=== PATIENT | male | born 1960 | race Two or more races ===

== ENCOUNTER → 2024-07-09 | Outpatient (CLI) | payer OTHER, SELFPAY ==
[2024-07-09 12:26] LABS: Basophils % (Auto) 1 % (0-2.5); Eosinophils # (Auto) 0.1 Thou/mm3 (0.0-0.5); Eosinophils % (Auto) 2 % (0-10); Hematocrit 41.3 % (41.0-53.0); Immature Granulocytes % (Auto) 1 % (0-0); Immature Granulocytes Auto 0.03 Thou/mm3 (0.00-0.00); Lymphocytes % (Auto) 37 % (10-50); Mean Corpuscular HGB Conc 33.9 g/dl (31.0-37.0); Mean Corpuscular Hemoglobin 32.2 pg (25.0-35.0); Mean Corpuscular Volume 95 fL (80-100); Monocytes # (Auto) 0.5 Thou/mm3 (0.0-0.8); Monocytes % (Auto) 9 % (0-12); Neutrophils # (Auto) 2.7 Thou/mm3 (1.8-7.7); Neutrophils % (Auto) 51 % (37-80); Nucleated Red Blood Cell % 0 /100 WBC (0); Platelet Count 210 Thou/mm3 (140-440); RDW Standard Deviation 46.2 fL (35.1-43.9); Red Blood Count 4.35 Miln/mm3 (4.50-5.90); White Blood Count 5.4 Thou/mm3 (3.8-10.6)
== END | disposition home or self-care (01) ==
LOC: COPL 11:08
PROVIDERS: PCP Internal Medicine; Referring Provider Specialist; Visit Provider Specialist
DX: D69.6 Thrombocytopenia, unspecified (principal); Z51.11 Encounter for antineoplastic chemotherapy
CPT/HCPCS: 36415; 85025

== ENCOUNTER 2024-09-05 12:26 | Emergency (ER) | payer OTHER, SELFPAY ==
--- NOTE | 2024-09-05 12:55 | XR_ITS ---
Examination: CT abdomen and pelvis without contrast. Coronal 3-D reconstructions. Sagittal 2-D reconstructions. Date and time of exam:September 05, 2024 at 1549 hrs. Indications: Status post spinal surgery August 05, 2024 with abdominal pain and swelling 1 week CTDI: vol (mGy): 9.70 DLP: (mGycm): 580 Technique: Axial images of the abdomen have been obtained, 3 mm slice thickness Intravenous contrast material has not been administered. Low dose protocols were performed. One or more of the following dose reduction techniques were used; automated exposure control, adjustment of the mA and/or KV according to patient size, use of iterative reconstruction technique. Findings: No focal liver or splenic lesion No gallstones No pancreatic or adrenal mass Interval very large fluid collection in the left abdomen which is present below the left kidney, AP dimension 20 cm mediolateral dimension 15 cm, cephalocaudad dimension at least 19 cm Moderate left hydronephrosis No bowel obstruction Normal appendix No diverticulitis Contracted urinary bladder with wall thickening Large prostate calcifications, transverse prostate dimension 5.4 cm Transpedicular lumbar stabilization T12-S1 surrounding a severity compressed L4 vertebral body, please see the CT scan lumbar spine February 05, 2023 The large fluid collection is contiguous with the anterior spinal margin Impression: Postoperative lumbar spine changes as above Interval very large fluid collection in the left abdomen, differential would include urinoma secondary to damage to the left ureter as well as hematoma Recommend repeating this study CTA post intravenous contrast with delayed images to outline the ureters and urinary bladder
--- NOTE | 2024-09-05 12:56 | PD.EDRME ---
Rapid Medical Screening Exam RME Arrival date/time: 09/05/24 12:26 64-year-old male with no known medical history presents to the emergency room with a chief complaint of abdominal bloating. Patient states he recently had spinal surgery and they had to do an incision through his abdomen to reach his back. Patient states that where his incision is there is a lot of bloating and abdominal tenderness to the area. The surgery was done in [place] and the patient states he has been unable to see the surgeon. I have greeted and performed a focused initial assessment of this patient. A comprehensive ED assessment and evaluation of the patient, analysis of all test results, and completion of the medical decision making process will be conducted by additional ED providers. Chief Complaint: General Adult/Misc Complain Vital signs reviewed by provider: Yes
[2024-09-05 12:57] VITALS: BP 131/74; PULSE 82; RESP 19; TEMP 36.8; O2SAT 99; BMI 29.8
[2024-09-05 13:45] LABS: Basophils % (Auto) 1 % (0-2.5); Eosinophils # (Auto) 0.2 Thou/mm3 (0.0-0.5); Eosinophils % (Auto) 4 % (0-10); Hemoglobin 11.9 g/dL (13.5-16.0); Immature Granulocytes % (Auto) 1 % (0-0); Immature Granulocytes Auto 0.03 Thou/mm3 (0.00-0.00); Lymphocytes # (Auto) 1.6 Thou/mm3 (1.0-4.8); Lymphocytes % (Auto) 26 % (10-50); Mean Corpuscular HGB Conc 33.1 g/dl (31.0-37.0); Mean Corpuscular Hemoglobin 30.7 pg (25.0-35.0); Mean Corpuscular Volume 93 fL (80-100); Monocytes # (Auto) 0.7 Thou/mm3 (0.0-0.8); Monocytes % (Auto) 11 % (0-12); Neutrophils # (Auto) 3.7 Thou/mm3 (1.8-7.7); Neutrophils % (Auto) 58 % (37-80); Nucleated Red Blood Cell % 0 /100 WBC (0); Platelet Count 283 Thou/mm3 (140-440); RDW Standard Deviation 50.8 fL (35.1-43.9); Red Blood Count 3.87 Miln/mm3 (4.50-5.90); White Blood Count 6.3 Thou/mm3 (3.8-10.6)
[2024-09-05 14:11] LABS: Alanine Aminotransferase 27 U/L (10-49); Albumin, Serum 4.5 gm/dL (3.4-4.8); Albumin/Globulin Ratio 1.6 (1.2-2.2); Alkaline Phosphatase 134 U/L (46-116); Anion Gap 9 (7-16); Aspartate Amino Transferase 24 U/L (0-34); BUN/Creatinine Ratio 21 Ratio (12-20); Bilirubin,Total 0.8 mg/dL (0.3-1.2); Blood Urea Nitrogen 17 mg/dL (9-23); Calcium 9.7 mg/dL (8.3-10.6); Calcium (Corrected) 9.7 mg/dL (8.5-10.1); Carbon Dioxide 24.1 mMol/L (20.0-31.0); Chloride 104 mMol/L (98-107); Creatinine (Component) 0.8 mg/dL (0.6-1.3); Estimated Creatinine Clearance 83.7 mL/min (>60); Globulin 2.9 gm/dL (2.3-3.5); Glucose 87 mg/dL (74-106); Lipase 35 U/L (12-53); Osmolality,Calculated 274 (275-295); Sodium 137 mMol/L (136-145); Total Protein 7.4 gm/dL (5.7-8.2); eGFR > 60 See Note
[2024-09-05 14:31] LABS: Collection Type, Urine Clean Catch
[2024-09-05 14:55] LABS: Bilirubin,Urine Negative (Negative); Blood,Urine Negative (Negative); Clarity,Urine Clear (Clear/Hazy); Color,Urine Yellow (Lt Yel-Yel); Glucose, Urine Negative (Negative); Hyaline Casts,Urine < 1 /hpf (0-1); Ketones,Urine Negative (Negative); Leukocyte Esterase,Urine Negative (Negative); Nitrite,Urine Negative (Negative); PH,Urine 5.5 (5.0-7.0); Protein,Urine Trace (Neg - Trace); RBC,Urine 4 /hpf (0-3); Specific Gravity,Urine 1.023 (1.001-1.035); Squamous Epithelial Cell,Urine < 1 /hpf (0-5); Urobilinogen,Urine Negative mg/dL (0.0-1.0); WBC,Urine 3 /hpf (0-5)
[2024-09-05 16:59] VITALS: BP 103/62; PULSE 79; RESP 19; TEMP 37.1; O2SAT 98
--- NOTE | 2024-09-05 17:53 | XR_ITS ---
Examination: CTA abdomen, with intravenous contrast. CTA pelvis, with intravenous contrast. 2-D sagittal and coronal reconstructions. 3-D reconstructions. Date and time of exam: September 05, 20242024 hrs. Indications: Spinal surgery August 05, 2024 followed by abdominal pain and swelling this week CTDI vol (mgy) 9.39 DLP (MGycm) 542 Technique: Multiple CTA images, 2.0 mm slice thickness, obtained abdomen, pelvis, with the high-resolution 64 slice scanner. 100 cc Isovue-370 is administered intravenously. Sagittal and coronal 2-D reconstructions are obtained. 3-D reconstructions, angiographic images are obtained. 3-D postprocessing, including vascular maximum intensity projections. Low dose protocols were performed. One or more of the following dose reduction techniques were used; automated exposure control, adjustment of the mA and/or KV according to patient size, use of iterative reconstruction technique. Findings: No focal liver or splenic lesions No gallstones No pancreatic mass Moderate left hydronephrosis The opacified abdominal aorta appears intact The large cystic mass in the left abdomen is again depicted, 20 x 15 x 19 cm This mass does not opacify with contrast The mass is immediately adjacent and anterior to the lumbar spinal fusion Urinary bladder intact Prostate calcifications No inguinal hernias Impression: Moderate left hydronephrosis, likely secondary to large cystic mass in the left abdomen 20 x 15 x 19 cm Differential for this large cystic mass would include seroma, hematoma, less likely secondary to ureteral damage but clinical correlation advised
--- NOTE | 2024-09-05 17:54 | PD.EDRME ---
Rapid Medical Screening Exam RME Arrival date/time: 09/05/24 12:26 09/05/24 12:26 64-year-old male with no known medical history presents to the emergency room with a chief complaint of abdominal bloating. Patient states he recently had spinal surgery and they had to do an incision through his abdomen to reach his back. Patient states that where his incision is there is a lot of bloating and abdominal tenderness to the area. The surgery was done in [place] and the patient states he has been unable to see the surgeon. I have greeted and performed a focused initial assessment of this patient. A comprehensive ED assessment and evaluation of the patient, analysis of all test results, and completion of the medical decision making process will be conducted by additional ED providers. Chief Complaint: General Adult/Misc Complain Time Seen by Provider: 09/06/24 00:01 Vital signs: Vital Signs Temperature 98.3 F 09/05/24 12:57 Pulse Rate 82 09/05/24 12:57 Respiratory Rate 19 09/05/24 12:57 Blood Pressure 131/74 H 09/05/24 12:57 Pulse Oximetry (%) 99 09/05/24 12:57 Oxygen Delivery Method Room Air 09/05/24 12:57 RME Narrative: 09/05/24 12:26 64-year-old male with no known medical history presents to the emergency room with a chief complaint of abdominal bloating. Patient states he recently had spinal surgery and they had to do an incision through his abdomen to reach his back. Patient states that where his incision is there is a lot of bloating and abdominal tenderness to the area. The surgery was done in [place] and the patient states he has been unable to see the surgeon. I have greeted and performed a focused initial assessment of this patient. A comprehensive ED assessment and evaluation of the patient, analysis of all test results, and completion of the medical decision making process will be conducted by additional ED providers.
[2024-09-05 22:31] VITALS: BP 110/60; PULSE 75; RESP 19; TEMP 36.9; O2SAT 98
--- NOTE | 2024-09-06 00:05 | PD.EDADULT ---
ED General RME/HPI General Chief complaint: General Adult/Misc Complain Stated complaint: WOUND CHECK TO ABDOMEN S/P SURGERY ON 08/05 Time Seen by Provider: 09/06/24 00:01 Arrival date/time: 09/05/24 12:26 Limitations: no limitations RME / HPI RME / HPI narrative: 09/05/24 12:26 64-year-old male with no known medical history presents to the emergency room with a chief complaint of abdominal bloating. Patient states he recently had spinal surgery and they had to do an incision through his abdomen to reach his back. Patient states that where his incision is there is a lot of bloating and abdominal tenderness to the area. The surgery was done in [place] and the patient states he has been unable to see the surgeon. I have greeted and performed a focused initial assessment of this patient. A comprehensive ED assessment and evaluation of the patient, analysis of all test results, and completion of the medical decision making process will be conducted by additional ED providers. ------- Dr. Daley's Main ED Evaluation: 64yo male presents to the ED for a chief complaint of abdominal bloating. Patient's daughter states the patient had spinal surgery performed by Dr. Ortiz at [facility] [[email or web address]] on 08/05/24 and was discharged on 08/11/24. She states the patient had been doing fine after being discharged, but recently started feeling like the left side of his incision was getting bigger, so he came in for evaluation. He denies any fever, chills, UTI symptoms or any other associated symptoms. No known allergies. 2022 - Fall- s/p burst type compression fracture L4 vertebral body, with recent surgical lumbar stabilization T12-S1 08/05/24 Related Data Allergies Allergy/AdvReac Type Severity Reaction Status Date / Time No Known Allergies Allergy Verified 09/05/24 12:30 Review of Systems Review of Systems Systems Reviewed: All systems reviewed, normal except as documented Past Medical History Past Medical History CARDIAC: Negative Cardiac Disorders or Congestive Heart Failure RESPIRATORY: Negative Chronic Obstructive Pulmonary Disease (COPD) or Asthma GENITOURINARY: Negative Renal Disease ENDOCRINE: Negative Diabetes Mellitus Type 1 or Diabetes Mellitus Type 2 HEMATOLOGIC: Negative Sickle Cell Disease Social History SMOKING STATUS: Never smoker ED Exam General Limitations: Present no limitations General appearance: Present alert and in no apparent distress Head Head exam: Present atraumatic Eye Eye exam: Present normal appearance and EOMI ENT ENT exam: Present normal exam, normal oropharynx and mucous membranes moist Neck Neck exam: Present normal inspection, full ROM and trachea midline Chest Chest inspection: Present normal inspection and symmetric chest wall rise Respiratory Respiratory exam: Present normal lung sounds bilaterally Cardiovascular Cardiovascular exam: Present regular rate, normal rhythm and normal heart sounds Abdominal Exam Abdominal exam: Present soft, normal bowel sounds, incision (from left upper abdomen that extends 10 cm below his left nipple to the left groin, steri strips in place, no discharge, nontender) and other (fullness on bilateral sides of the anterior abdominal wall) Extremities Exam Extremities exam: Present normal inspection and full ROM Back Exam Back exam: Present other (midline incision that extends from below the scapula to the cleft of his buttock are that is nontender, well-healed with steri strips in place, no discharge; normal sensation L5-S1, normal motor; distal reflexes equal bilaterally; N/V intact) Neurological Exam Neurological exam: Present alert, oriented X3, CN II-XII intact and normal gait; Absent motor sensory deficit Psychiatric Psychiatric exam: Present normal affect and normal mood Skin Skin exam: Present warm, dry, intact and normal color Course Quality Measures none Orders Category Date Time Status CT Screening NOW Care 09/05/24 17:[address] Screening NOW Care 09/05/24 17:[address] abdomen pelvis wo con Stat Exams 09/05/24 12:[address] angio abdomen pelvis Stat Exams 09/05/24 17:53 Completed CBC Stat Lab 09/05/24 13:16 Completed CMP [Comprehensive Metabolic Panel] Stat Lab 09/05/24 13:16 Completed Lipase Stat Lab 09/05/24 13:16 Completed UA [Urinalysis] Stat Lab 09/05/24 14:00 Completed Vital Signs Vital signs: Vital Signs Temperature 98.3 F 09/05/24 12:57 Pulse Rate 82 09/05/24 12:57 Respiratory Rate 19 09/05/24 12:57 Blood Pressure 131/74 H 09/05/24 12:57 Pulse Oximetry (%) 99 09/05/24 12:57 Oxygen Delivery Method Room Air 09/05/24 12:57 [facility] Patient data External records reviewed:: [facility] previous records (Per chart review, patient has no relevant previous ED visits.) Clinical information provided by:: patient Social determinants that could affect healthcare access:: none Patient has the following chronic illnesses:: none How is presenting disease/condition affected by chronic disease/condition?: no chronic disease Evaluation data The following diagnostics were reviewed and interpreted by me:: lab results and radiology exam(s) Lab and/or radiology exams considered but not ordered:: none Interpretation Summary: CBC is normal, CMP is normal, Lipase is normal, UA is unremarkable, according to my interpretation. ----- [facility] Report Signed Patient: CHITO CLARK Record#: [id number] Birthdate: 1960 Age/Sex: 64 / M Location: [facility] Attending Dr: Ordering Physician: Nathan Lundy Date of Service: 09/05/24 Procedure(s): CT abdomen pelvis wo con Accession Number(s): [id number] cc: Kenney Kellogg; Nathan Lundy; Kong Nicolas MD~ Examination: CT abdomen and pelvis without contrast. Coronal 3-D reconstructions. Sagittal 2-D reconstructions. Date and time of exam:September 05, 2024 at 1549 hrs. Indications: Status post spinal surgery August 05, 2024 with abdominal pain and swelling 1 week CTDI: vol (mGy): 9.70 DLP: (mGycm): 580 Technique: Axial images of the abdomen have been obtained, 3 mm slice thickness Intravenous contrast material has not been administered. Low dose protocols were performed. One or more of the following dose reduction techniques were used; automated exposure control, adjustment of the mA and/or KV according to patient size, use of iterative reconstruction technique. Findings: No focal liver or splenic lesion No gallstones No pancreatic or adrenal mass Interval very large fluid collection in the left abdomen which is present below the left kidney, AP dimension 20 cm mediolateral dimension 15 cm, cephalocaudad dimension at least 19 cm Moderate left hydronephrosis No bowel obstruction Normal appendix No diverticulitis Contracted urinary bladder with wall thickening Large prostate calcifications, transverse prostate dimension 5.4 cm Transpedicular lumbar stabilization T12-S1 surrounding a severity compressed L4 vertebral body, please see the CT scan lumbar spine February 05, 2023 The large fluid collection is contiguous with the anterior spinal margin Impression: Postoperative lumbar spine changes as above Interval very large fluid collection in the left abdomen, differential would include urinoma secondary to damage to the left ureter as well as hematoma Recommend repeating this study CTA post intravenous contrast with delayed images to outline the ureters and urinary bladder Dictated By: Kong Nicolas MD Signed By: <Electronically signed by Kong Nicolas MD in [place]> 09/05/24 1657 [facility] Report Signed Patient: CHITO CLARK Record#: [id number] Birthdate: 1960 Age/Sex: 64 / M Location: [facility] Attending Dr: Ordering Physician: Nathan Lundy Date of Service: 09/05/24 Procedure(s): CT angio abdomen pelvis Accession Number(s): [id number] cc: Kenney Kellogg; Nathan Lundy; Kong Nicolas MD~ Examination: CTA abdomen, with intravenous contrast. CTA pelvis, with intravenous contrast. 2-D sagittal and coronal reconstructions. 3-D reconstructions. Date and time of exam: September 05, 20242024 hrs. Indications: Spinal surgery August 05, 2024 followed by abdominal pain and swelling this week CTDI vol (mgy) 9.39 DLP (MGycm) 542 Technique: Multiple CTA images, 2.0 mm slice thickness, obtained abdomen, pelvis, with the high-resolution 64 slice scanner. 100 cc Isovue-370 is administered intravenously. Sagittal and coronal 2-D reconstructions are obtained. 3-D reconstructions, angiographic images are obtained. 3-D postprocessing, including vascular maximum intensity projections. Low dose protocols were performed. One or more of the following dose reduction techniques were used; automated exposure control, adjustment of the mA and/or KV according to patient size, use of iterative reconstruction technique. Findings: No focal liver or splenic lesions No gallstones No pancreatic mass Moderate left hydronephrosis The opacified abdominal aorta appears intact The large cystic mass in the left abdomen is again depicted, 20 x 15 x 19 cm This mass does not opacify with contrast The mass is immediately adjacent and anterior to the lumbar spinal fusion Urinary bladder intact Prostate calcifications No inguinal hernias Impression: Moderate left hydronephrosis, likely secondary to large cystic mass in the left abdomen 20 x 15 x 19 cm Differential for this large cystic mass would include seroma, hematoma, less likely secondary to ureteral damage but clinical correlation advised Dictated By: Kong Nicolas MD Signed By: <Electronically signed by Kong Nicolas MD in [place]> 09/05/24 5433 Medications Medications considered but not ordered:: none Medication administrations:: see above, if any Consultations Consultation(s) initiated? (list below): No Diagnosis Differential Diagnosis ED Complaint MDM: postop infection, hematoma, seroma, kidney mass causing hydronephrosis Most likely diagnosis given after review of the tests above:: Other DDx: kidney stone, sepsis, UTI Final DDx: see below Admission Indicated Admission indicated?: not indicated Explain why admission is indicated or not indicated:: Patient requires a higher level of care. Admission Request Was there a request for admission?: No Disposition Plan Disposition Plan: other (specify) (Signed out to Dr. Willams at 0600 pending transfer/callback from [facility] [[email or web address]] (have not yet spoken with them yet).) Medical Decision Making MDM Narrative MDM Narrative: Patient was placed into a room at 2336. Differential Diagnosis Differential Diagnosis: postop infection, hematoma, seroma, kidney mass causing hydronephrosis Lab Data 09/05/24 13:16 09/05/24 13:16 Labs: Lab Results 09/05/24 09/05/24 Range/Units 13:16 14:00 WBC 6.3 (3.8-10.6) Thou/mm3 RBC 3.87 L (4.50-5.90) Miln/mm3 Hgb 11.9 L (13.5-16.0) g/dL Hct 36.0 L (41.0-53.0) % MCV 93 (80-100) fL MCH 30.7 (25.0-35.0) pg MCHC 33.1 (31.0-37.0) g/dl RDW Std Deviation 50.8 H (35.1-43.9) fL Plt Count 283 (140-440) Thou/mm3 Neut % (Auto) 58 (37-80) % Lymph % (Auto) 26 (10-50) % [place] % (Auto) 11 (0-12) % Eos % (Auto) 4 (0-10) % Baso % (Auto) 1 (0-2.5) % Neut # (Auto) 3.7 (1.8-7.7) Thou/mm3 Lymph # (Auto) 1.6 (1.0-4.8) Thou/mm3 [place] # (Auto) 0.7 (0.0-0.8) Thou/mm3 Eos # (Auto) 0.2 (0.0-0.5) Thou/mm3 Baso # (Auto) 0.0 (0.0-0.2) Thou/mm3 Immature Gran # (Auto) 0.03 H (0.00-0.00) Thou/mm3 Absolute Nucleated RBC 0.00 (0.00-0.00) Thou/mm3 Immature Gran % 1 H (0-0) % Nucleated RBC % 0 (0) /100 WBC Sodium 137 (136-145) mMol/L Potassium 4.0 (3.4-5.1) mMol/L Chloride 104 (98-107) mMol/L Carbon Dioxide 24.1 (20.0-31.0) mMol/L Anion Gap 9 (7-16) BUN 17 (9-23) mg/dL Creatinine 0.8 (0.6-1.3) mg/dL Estim Creat Clear Calc 83.7 (>60) mL/min eGFR > 60 (60 - ) See Note BUN/Creatinine Ratio 21 H (12-20) Ratio Glucose 87 (74-106) mg/dL Calculated Osmolality 274 L (275-295) Calcium 9.7 (8.3-10.6) mg/dL Corrected Calcium 9.7 (8.5-10.1) mg/dL Total Bilirubin 0.8 (0.3-1.2) mg/dL AST 24 (0-34) U/L ALT 27 (10-49) U/L Alkaline Phosphatase 134 H (46-116) U/L Total Protein 7.4 (5.7-8.2) gm/dL Albumin 4.5 (3.4-4.8) gm/dL Globulin 2.9 (2.3-3.5) gm/dL Albumin/Globulin Ratio 1.6 (1.2-2.2) Lipase 35 (12-53) U/L Ur Collection Type Clean Catch Urine Color Yellow (Lt Yel-Yel) Urine Clarity Clear (Clear/Hazy) Urine pH 5.5 (5.0-7.0) Ur Specific [place] 1.023 (1.001-1.035) Urine Protein Trace (Neg - Trace) Urine Glucose (UA) Negative (Negative) Urine Ketones Negative (Negative) Urine Blood Negative (Negative) Urine Nitrite Negative (Negative) Urine Bilirubin Negative (Negative) Urine Urobilinogen (Auto) Negative (0.0-1.0) mg/dL Ur Leukocyte Esterase Negative (Negative) Urine RBC 4 H (0-3) /hpf Urine WBC 3 (0-5) /hpf Ur Squamous Epith Cells < 1 (0-5) /hpf Urine Bacteria None (None) Hyaline Casts < 1 (0-1) /hpf Discharge Plan Plan Disposition Comment: Stable at transfer Prescriptions/Referrals Referrals: Kenney Kellogg [Primary Care Provider] - In 1 week Problem List Clinical Impression: Post op infection, Hydronephrosis, Abdominal mass Patient/Caregiver Discharge Instructions Print Language: Mongolian
--- NOTE | 2024-09-06 03:49 | PC.NURSE ---
TRANSFER [facility], PT WAS SEEN THERE ON 08/[address] BERG, SPOKE WITH ALICJA AT TRANSFER CENTER AND SENDING OVER INFORMATION
[2024-09-06 04:06] VITALS: BP 118/70; PULSE 75; RESP 14; TEMP 36.9; O2SAT 98
[2024-09-06 06:00] VITALS: BP 115/74; PULSE 74; RESP 16; TEMP 36.9; O2SAT 99
--- NOTE | 2024-09-06 06:06 | PC.NURSE ---
[facility] CONTACTED ER, GETTING CLINICALS FROM DR LIN
--- NOTE | 2024-09-06 06:12 | PD.EDADDENDU ---
Emergency Room Addendum Addendum Narrative: 0600: Care assumed from Dr. Daley, the previous shift emergency physician. Past medical, surgical, social and family history reviewed. Vitals and home medications reviewed. I will assume the care of the patient at this time, pending transfer. Please refer to the emergency department record for history and examination from initial visit.? Physical exam by me shows patient under no acute distress at this time.
== END 2024-09-06 07:11 | disposition home or self-care (01) ==
PROVIDERS: Nurse Practitioner Family; Emergency Provider Emergency Medicine; PCP Internal Medicine
DX: N13.30 Unspecified hydronephrosis (principal); T81.40XA Infection following a procedure, unspecified, initial encounter
CPT/HCPCS: 36415; 74174; 74176; 80053; 81001; 83690; 85025; 99285; A4649; Q9967

== ENCOUNTER → 2024-09-16 | Outpatient (CLI) | payer OTHER, SELFPAY ==
[2024-09-16 10:34] LABS: Basophils % (Auto) 0 % (0-2.5); Eosinophils # (Auto) 0.3 Thou/mm3 (0.0-0.5); Eosinophils % (Auto) 5 % (0-10); Hematocrit 36.9 % (41.0-53.0); Immature Granulocytes % (Auto) 1 % (0-0); Immature Granulocytes Auto 0.03 Thou/mm3 (0.00-0.00); Lymphocytes # (Auto) 1.8 Thou/mm3 (1.0-4.8); Lymphocytes % (Auto) 29 % (10-50); Mean Corpuscular HGB Conc 32.5 g/dl (31.0-37.0); Mean Corpuscular Hemoglobin 30.5 pg (25.0-35.0); Mean Corpuscular Volume 94 fL (80-100); Monocytes # (Auto) 0.6 Thou/mm3 (0.0-0.8); Monocytes % (Auto) 9 % (0-12); Neutrophils # (Auto) 3.5 Thou/mm3 (1.8-7.7); Neutrophils % (Auto) 57 % (37-80); Nucleated Red Blood Cell % 0 /100 WBC (0); Platelet Count 273 Thou/mm3 (140-440); RDW Standard Deviation 50.1 fL (35.1-43.9); Red Blood Count 3.93 Miln/mm3 (4.50-5.90); White Blood Count 6.1 Thou/mm3 (3.8-10.6)
== END | disposition home or self-care (01) ==
LOC: COPL 09:05
PROVIDERS: PCP Internal Medicine; Referring Provider Specialist; Visit Provider Specialist
DX: D69.6 Thrombocytopenia, unspecified (principal)
CPT/HCPCS: 36415; 85025

== ENCOUNTER → 2024-10-28 | Outpatient (CLI) | payer OTHER, SELFPAY ==
[2024-10-28 11:30] LABS: Basophils % (Auto) 1 % (0-2.5); Eosinophils # (Auto) 0.1 Thou/mm3 (0.0-0.5); Eosinophils % (Auto) 3 % (0-10); Hematocrit 37.8 % (41.0-53.0); Hemoglobin 12.7 g/dL (13.5-16.0); Immature Granulocytes % (Auto) 0 % (0-0); Lymphocytes # (Auto) 1.4 Thou/mm3 (1.0-4.8); Lymphocytes % (Auto) 34 % (10-50); Mean Corpuscular HGB Conc 33.6 g/dl (31.0-37.0); Mean Corpuscular Hemoglobin 31.2 pg (25.0-35.0); Mean Corpuscular Volume 93 fL (80-100); Monocytes # (Auto) 0.4 Thou/mm3 (0.0-0.8); Monocytes % (Auto) 10 % (0-12); Neutrophils # (Auto) 2.2 Thou/mm3 (1.8-7.7); Neutrophils % (Auto) 53 % (37-80); Nucleated Red Blood Cell % 0 /100 WBC (0); Platelet Count 210 Thou/mm3 (140-440); RDW Standard Deviation 49.5 fL (35.1-43.9); Red Blood Count 4.07 Miln/mm3 (4.50-5.90); White Blood Count 4.1 Thou/mm3 (3.8-10.6)
[2024-10-28 13:25] LABS: Glucose Estimated Average 103 mg/dL (80-131); Hemoglobin A1C 5.2 % Hgb (4.8-6.0)
[2024-10-28 13:35] LABS: PSA Medicare Annual Scrn 0.45 ng/mL (0-4.00)
[2024-10-28 13:53] LABS: Alanine Aminotransferase 20 U/L (10-49); Albumin, Serum 4.2 gm/dL (3.4-4.8); Albumin/Globulin Ratio 1.5 (1.2-2.2); Anion Gap 8 (7-16); Aspartate Amino Transferase 26 U/L (0-34); BUN/Creatinine Ratio 33 Ratio (12-20); Bilirubin,Total 1.3 mg/dL (0.3-1.2); Blood Urea Nitrogen 20 mg/dL (9-23); Calcium 9.3 mg/dL (8.3-10.6); Calcium (Corrected) 9.3 mg/dL (8.5-10.1); Carbon Dioxide 26.9 mMol/L (20.0-31.0); Cardiac Risk Estimate 4.4 RATIO (4.0-6.7); Chloride 106 mMol/L (98-107); Cholesterol 158 mg/dL (132-200); Creatinine (Component) 0.6 mg/dL (0.6-1.3); Globulin 2.8 gm/dL (2.3-3.5); Glucose 97 mg/dL (74-106); HDL Cholesterol 36 mg/dL (40-60); LDL Cholesterol,Calculated 100 mg/dL (0-130); Osmolality,Calculated 283 (275-295); Potassium 4.8 mMol/L (3.4-5.1); Sodium 141 mMol/L (136-145); Triglycerides 110 mg/dL (30-150); eGFR > 60 See Note
[2024-10-28 15:10] LABS: Alkaline Phosphatase 102 U/L (46-116)
== END | disposition home or self-care (01) ==
PROVIDERS: PCP Internal Medicine; Referring Provider Internal Medicine; Visit Provider Internal Medicine
DX: M54.50 Low back pain, unspecified (principal); D69.6 Thrombocytopenia, unspecified; N40.0 Benign prostatic hyperplasia without lower urinary tract symptoms; I10 Essential (primary) hypertension; Z51.11 Encounter for antineoplastic chemotherapy
CPT/HCPCS: 36415; 80053; 80061; 83036; 84153; 85025; G0103

== ENCOUNTER → 2024-10-29 | Outpatient (CLI) | payer OTHER, SELFPAY ==
--- NOTE | 2024-10-29 16:00 | XR_ITS ---
Examination: Retroperitoneal ultrasound, complete Technique: Multiple high resolution grayscale images of the retroperitoneum obtained, including kidneys and bladder. Exam date and time:October 29, 2024 at 1612 hrs. Indications: Right flank pain beginning 2 months ago Findings: Right kidney 11.0 cm cortex 2.2 cm Lower pole 5.6 cm cyst Left kidney 11.1 cm renal cortex 2.5 cm Minimal left hydronephrosis Moderate bilateral renal parenchymal scar formation No bladder mass or bladder calculi Bladder prevoid volume 135 cc postvoid volume 46 cc Prostate volume 10.4 cc no prostate nodules Impression: Moderate bilateral renal parenchymal scar formation Minimal left hydronephrosis
== END | disposition home or self-care (01) ==
PROVIDERS: PCP Surgery; Referring Provider Surgery; Visit Provider Surgery
DX: N28.89 Other specified disorders of kidney and ureter (principal); N13.30 Unspecified hydronephrosis
CPT/HCPCS: 76770

== ENCOUNTER → 2024-11-13 | Outpatient (CLI) | payer OTHER, SELFPAY ==
--- NOTE | 2024-11-13 15:54 | XR_ITS ---
EXAMINATION: US venous doppler LE LT HISTORY: DVT COMPARISON: None. FINDINGS: [place]re[place] scale, color doppler, and spectral waveforms of the left lower extremity veins. The imaged veins are unremarkable without evidence of internal thrombus. Spectral Doppler imaging demonstrates normal wave forms. The overlying soft tissues are unremarkable. IMPRESSION: Negative for left lower extremity deep venous thrombosis.
== END | disposition home or self-care (01) ==
LOC: CDIM 15:51
PROVIDERS: Referring Provider Internal Medicine; Visit Provider Internal Medicine
DX: R60.9 Edema, unspecified (principal); M79.605 Pain in left leg
CPT/HCPCS: 93971

== ENCOUNTER → 2025-01-13 | Outpatient (CLI) | payer OTHER, SELFPAY ==
[2025-01-13 08:45] LABS: Basophils % (Auto) 0 % (0-2.5); Eosinophils # (Auto) 0.1 Thou/mm3 (0.0-0.5); Eosinophils % (Auto) 3 % (0-10); Hematocrit 39.7 % (41.0-53.0); Hemoglobin 13.5 g/dL (13.5-16.0); Immature Granulocytes % (Auto) 0 % (0-0); Immature Granulocytes Auto 0.01 Thou/mm3 (0.00-0.00); Lymphocytes # (Auto) 1.2 Thou/mm3 (1.0-4.8); Lymphocytes % (Auto) 36 % (10-50); Mean Corpuscular Hemoglobin 32.4 pg (25.0-35.0); Mean Corpuscular Volume 95 fL (80-100); Monocytes # (Auto) 0.4 Thou/mm3 (0.0-0.8); Monocytes % (Auto) 10 % (0-12); Neutrophils # (Auto) 1.8 Thou/mm3 (1.8-7.7); Neutrophils % (Auto) 51 % (37-80); Nucleated Red Blood Cell % 0 /100 WBC (0); Platelet Count 81 Thou/mm3 (140-440); RDW Standard Deviation 46.3 fL (35.1-43.9); Red Blood Count 4.17 Miln/mm3 (4.50-5.90); White Blood Count 3.5 Thou/mm3 (3.8-10.6)
[2025-01-13 09:05] LABS: Alanine Aminotransferase 26 U/L (10-49); Albumin, Serum 4.3 gm/dL (3.4-4.8); Albumin/Globulin Ratio 1.5 (1.2-2.2); Alkaline Phosphatase 105 U/L (46-116); Anion Gap 10 (7-16); Aspartate Amino Transferase 27 U/L (0-34); BUN/Creatinine Ratio 36 Ratio (12-20); Bilirubin,Total 0.6 mg/dL (0.3-1.2); Blood Urea Nitrogen 25 mg/dL (9-23); Calcium 8.9 mg/dL (8.3-10.6); Calcium (Corrected) 8.9 mg/dL (8.5-10.1); Carbon Dioxide 25.9 mMol/L (20.0-31.0); Chloride 107 mMol/L (98-107); Creatinine (Component) 0.7 mg/dL (0.6-1.3); Globulin 2.8 gm/dL (2.3-3.5); Glucose 120 mg/dL (74-106); Osmolality,Calculated 290 (275-295); Potassium 4.2 mMol/L (3.4-5.1); Sodium 143 mMol/L (136-145); Total Protein 7.1 gm/dL (5.7-8.2); eGFR > 60 See Note
== END | disposition home or self-care (01) ==
LOC: COPL 07:33
PROVIDERS: PCP Internal Medicine; Referring Provider Internal Medicine; Visit Provider Internal Medicine
DX: B35.1 Tinea unguium (principal)
CPT/HCPCS: 36415; 80053; 85025

== ENCOUNTER → 2025-01-27 | Outpatient (CLI) | payer OTHER, SELFPAY ==
[2025-01-27 09:42] LABS: Basophils % (Auto) 1 % (0-2.5); Eosinophils # (Auto) 0.1 Thou/mm3 (0.0-0.5); Eosinophils % (Auto) 2 % (0-10); Hemoglobin 13.9 g/dL (13.5-16.0); Immature Granulocytes % (Auto) 0 % (0-0); Immature Granulocytes Auto 0.01 Thou/mm3 (0.00-0.00); Lymphocytes # (Auto) 1.5 Thou/mm3 (1.0-4.8); Lymphocytes % (Auto) 36 % (10-50); Mean Corpuscular HGB Conc 33.9 g/dl (31.0-37.0); Mean Corpuscular Hemoglobin 32.2 pg (25.0-35.0); Mean Corpuscular Volume 95 fL (80-100); Monocytes # (Auto) 0.4 Thou/mm3 (0.0-0.8); Monocytes % (Auto) 9 % (0-12); Neutrophils # (Auto) 2.1 Thou/mm3 (1.8-7.7); Neutrophils % (Auto) 52 % (37-80); Nucleated Red Blood Cell % 0 /100 WBC (0); RDW Standard Deviation 46.5 fL (35.1-43.9); Red Blood Count 4.32 Miln/mm3 (4.50-5.90); White Blood Count 4.1 Thou/mm3 (3.8-10.6)
[2025-01-27 10:03] LABS: Platelet Count 79 Thou/mm3 (140-440)
[2025-01-27 10:45] LABS: Slide Review Platelets confirmed
== END | disposition home or self-care (01) ==
LOC: COPL 07:58
PROVIDERS: PCP Internal Medicine; Referring Provider Specialist; Visit Provider Specialist
DX: D69.6 Thrombocytopenia, unspecified (principal)
CPT/HCPCS: 36415; 85025

== ENCOUNTER → 2025-02-17 | Outpatient (CLI) | payer OTHER, SELFPAY ==
[2025-02-17 08:38] LABS: Basophils % (Auto) 0 % (0-2.5); Eosinophils # (Auto) 0.2 Thou/mm3 (0.0-0.5); Eosinophils % (Auto) 3 % (0-10); Hematocrit 39.7 % (41.0-53.0); Hemoglobin 13.7 g/dL (13.5-16.0); Immature Granulocytes % (Auto) 0 % (0-0); Immature Granulocytes Auto 0.01 Thou/mm3 (0.00-0.00); Lymphocytes # (Auto) 1.4 Thou/mm3 (1.0-4.8); Lymphocytes % (Auto) 27 % (10-50); Mean Corpuscular HGB Conc 34.5 g/dl (31.0-37.0); Mean Corpuscular Hemoglobin 32.8 pg (25.0-35.0); Mean Corpuscular Volume 95 fL (80-100); Monocytes # (Auto) 0.5 Thou/mm3 (0.0-0.8); Monocytes % (Auto) 9 % (0-12); Neutrophils # (Auto) 3.1 Thou/mm3 (1.8-7.7); Neutrophils % (Auto) 60 % (37-80); Nucleated Red Blood Cell % 0 /100 WBC (0); RDW Standard Deviation 47.5 fL (35.1-43.9); Red Blood Count 4.18 Miln/mm3 (4.50-5.90); White Blood Count 5.1 Thou/mm3 (3.8-10.6)
[2025-02-17 08:50] LABS: Platelet Count 70 Thou/mm3 (140-440)
[2025-02-17 09:05] LABS: Alanine Aminotransferase 22 U/L (10-49); Albumin, Serum 4.2 gm/dL (3.4-4.8); Albumin/Globulin Ratio 1.7 (1.2-2.2); Alkaline Phosphatase 94 U/L (46-116); Anion Gap 11 (7-16); Aspartate Amino Transferase 26 U/L (0-34); BUN/Creatinine Ratio 29 Ratio (12-20); Bilirubin,Total 0.9 mg/dL (0.3-1.2); Blood Urea Nitrogen 20 mg/dL (9-23); Carbon Dioxide 26.4 mMol/L (20.0-31.0); Chloride 105 mMol/L (98-107); Creatinine (Component) 0.7 mg/dL (0.6-1.3); Globulin 2.5 gm/dL (2.3-3.5); Glucose 111 mg/dL (74-106); Osmolality,Calculated 286 (275-295); Potassium 4.5 mMol/L (3.4-5.1); Sodium 142 mMol/L (136-145); Total Protein 6.7 gm/dL (5.7-8.2); eGFR > 60 See Note
[2025-02-17 10:57] LABS: Slide Review Platelets confirmed
== END | disposition home or self-care (01) ==
LOC: COPL 07:38
PROVIDERS: PCP Internal Medicine; Referring Provider Internal Medicine; Visit Provider Internal Medicine
DX: B35.1 Tinea unguium (principal); I10 Essential (primary) hypertension
CPT/HCPCS: 36415; 80053; 85025

== ENCOUNTER → 2025-04-03 | Outpatient (CLI) | payer OTHER, SELFPAY ==
[2025-04-03 09:32] LABS: Basophils # (Auto) 0.0 Thou/mm3 (0.0-0.2); Basophils % (Auto) 0 % (0-2.5); Eosinophils # (Auto) 0.1 Thou/mm3 (0.0-0.5); Eosinophils % (Auto) 1 % (0-10); Hematocrit 41.9 % (41.0-53.0); Hemoglobin 14.0 g/dL (13.5-16.0); Immature Granulocytes Auto 0.02 Thou/mm3 (0.00-0.00); Lymphocytes # (Auto) 1.6 Thou/mm3 (1.0-4.8); Lymphocytes % (Auto) 33 % (10-50); Mean Corpuscular HGB Conc 33.4 g/dl (31.0-37.0); Mean Corpuscular Hemoglobin 33.1 pg (25.0-35.0); Mean Corpuscular Volume 99 fL (80-100); Monocytes # (Auto) 0.4 Thou/mm3 (0.0-0.8); Monocytes % (Auto) 9 % (0-12); Neutrophils # (Auto) 2.8 Thou/mm3 (1.8-7.7); Neutrophils % (Auto) 56 % (37-80); Nucleated Red Blood Cell # 0.00 Thou/mm3 (0.00-0.00); Nucleated Red Blood Cell % 0 /100 WBC (0); Platelet Count 85 Thou/mm3 (140-440); RDW Standard Deviation 48.7 fL (35.1-43.9); Red Blood Count 4.23 Miln/mm3 (4.50-5.90); White Blood Count 4.9 Thou/mm3 (3.8-10.6)
[2025-04-03 09:50] LABS: Alanine Aminotransferase 17 U/L (10-49); Albumin, Serum 4.2 gm/dL (3.4-4.8); Albumin/Globulin Ratio 1.6 (1.2-2.2); Alkaline Phosphatase 92 U/L (46-116); Anion Gap 9 (7-16); Aspartate Amino Transferase 21 U/L (0-34); BUN/Creatinine Ratio 26 Ratio (12-20); Bilirubin,Total 0.7 mg/dL (0.3-1.2); Blood Urea Nitrogen 21 mg/dL (9-23); Calcium 9.1 mg/dL (8.3-10.6); Calcium (Corrected) 9.1 mg/dL (8.5-10.1); Carbon Dioxide 26.6 mMol/L (20.0-31.0); Chloride 107 mMol/L (98-107); Creatinine (Component) 0.8 mg/dL (0.6-1.3); Globulin 2.7 gm/dL (2.3-3.5); Glucose 101 mg/dL (74-106); Osmolality,Calculated 287 (275-295); Potassium 4.9 mMol/L (3.4-5.1); Sodium 143 mMol/L (136-145); Total Protein 6.9 gm/dL (5.7-8.2); eGFR > 60 See Note
== END | disposition home or self-care (01) ==
LOC: COPL 07:56
PROVIDERS: PCP Internal Medicine; Referring Provider Internal Medicine; Visit Provider Internal Medicine
DX: I10 Essential (primary) hypertension (principal); G47.30 Sleep apnea, unspecified; D69.6 Thrombocytopenia, unspecified; N40.0 Benign prostatic hyperplasia without lower urinary tract symptoms; B35.1 Tinea unguium
CPT/HCPCS: 36415; 80053; 85025

== ENCOUNTER → 2025-05-06 | Outpatient (CLI) | payer OTHER, SELFPAY ==
[2025-05-06 08:36] LABS: Basophils # (Auto) 0.0 Thou/mm3 (0.0-0.2); Basophils % (Auto) 0 % (0-2.5); Eosinophils # (Auto) 0.1 Thou/mm3 (0.0-0.5); Eosinophils % (Auto) 1 % (0-10); Hematocrit 42.2 % (41.0-53.0); Hemoglobin 13.8 g/dL (13.5-16.0); Immature Granulocytes Auto 0.02 Thou/mm3 (0.00-0.00); Lymphocytes # (Auto) 1.6 Thou/mm3 (1.0-4.8); Lymphocytes % (Auto) 30 % (10-50); Mean Corpuscular HGB Conc 32.7 g/dl (31.0-37.0); Mean Corpuscular Hemoglobin 32.2 pg (25.0-35.0); Mean Corpuscular Volume 98 fL (80-100); Monocytes # (Auto) 0.4 Thou/mm3 (0.0-0.8); Monocytes % (Auto) 8 % (0-12); Neutrophils # (Auto) 3.2 Thou/mm3 (1.8-7.7); Neutrophils % (Auto) 60 % (37-80); Nucleated Red Blood Cell # 0.00 Thou/mm3 (0.00-0.00); Nucleated Red Blood Cell % 0 /100 WBC (0); RDW Standard Deviation 45.1 fL (35.1-43.9); Red Blood Count 4.29 Miln/mm3 (4.50-5.90); White Blood Count 5.3 Thou/mm3 (3.8-10.6)
[2025-05-06 08:39] LABS: Platelet Count 65 Thou/mm3 (140-440)
[2025-05-06 10:11] LABS: Slide Review Platelets confirmed
== END | disposition home or self-care (01) ==
LOC: COPL 06:35
PROVIDERS: PCP Internal Medicine; Referring Provider Specialist; Visit Provider Specialist
DX: D69.6 Thrombocytopenia, unspecified (principal)
CPT/HCPCS: 36415; 85025

== ENCOUNTER 2025-06-05 09:50 | Day surgery (SDC) | payer OTHER, SELFPAY ==
[2025-06-05] VITALS (10 sets, daily range): BP systolic 100–137; BP diastolic 66–84; PULSE 54–78; RESP 13–19; TEMP 36.3–36.6; O2SAT 95–99; BMI 29.4
[2025-06-05] MEDS: fentaNYL CIT INJ 50 mCg/ML AMP 2ML (ASD USE ONLY) IVP (11:58)
[2025-06-05] MEDS: MIDAZOLAM INJ 1 MG/ML VIAL 2 ML (ASD USE ONLY) 2 MG IVP (12:01)
[2025-06-05] MEDS: SODIUM CHLORIDE 0.9% 500 ML 500 ML 20 ML IV (12:02)
--- NOTE | 2025-06-05 12:25 | SUR.PHASEII ---
1225 report received from Norah CHAKRABORTY, will assume care of patient
--- NOTE | 2025-06-05 12:31 | SUR.PHASEII ---
1215 To PACU able to lift head off of pillow, following simple commands, continue to monitor pt vitals and status.
--- NOTE | 2025-06-05 13:04 | SUR.PHASEII ---
1304 patient meets discharge criteria from recovery, awake and alert, breathing unlabored, vital signs stable, denies pain and nausea, able to dress himself into his clothing, discharge instructions given with the assistance of a certified hospital diplomatic interpreter Anushka to patient and his daughter, daughter signed discharge instructions, patient given all his belongings prior to discharge, transported via wheelchair and left in a private vehicle.
== END 2025-06-05 13:04 | disposition home or self-care (01) ==
PROVIDERS: PCP Internal Medicine; Referring Provider Specialist; Visit Provider Specialist
PROC: 0DBE8ZX Excision of Large Intestine, Via Natural or Artificial Opening Endoscopic, Diagnostic (ICD-10-PCS; CPT 45380; principal; 2025-06-05 13:00)
DX: Z12.11 Encounter for screening for malignant neoplasm of colon (principal); K64.2 Third degree hemorrhoids; K57.30 Diverticulosis of large intestine without perforation or abscess without bleeding
CPT/HCPCS: G0121; A4217; A4649; J1200; J2250; J3010; J7999

== ENCOUNTER → 2025-08-03 | Outpatient (CLI) | payer OTHER, SELFPAY ==
[2025-08-03 11:09] LABS: Basophils # (Auto) 0.0 Thou/mm3 (0.0-0.2); Basophils % (Auto) 1 % (0-2.5); Eosinophils # (Auto) 0.1 Thou/mm3 (0.0-0.5); Eosinophils % (Auto) 2 % (0-10); Hematocrit 41.1 % (41.0-53.0); Hemoglobin 13.7 g/dL (13.5-16.0); Immature Granulocytes Auto 0.01 Thou/mm3 (0.00-0.00); Lymphocytes # (Auto) 1.4 Thou/mm3 (1.0-4.8); Lymphocytes % (Auto) 34 % (10-50); Mean Corpuscular HGB Conc 33.3 g/dl (31.0-37.0); Mean Corpuscular Hemoglobin 32.5 pg (25.0-35.0); Mean Corpuscular Volume 98 fL (80-100); Monocytes # (Auto) 0.4 Thou/mm3 (0.0-0.8); Monocytes % (Auto) 10 % (0-12); Neutrophils # (Auto) 2.2 Thou/mm3 (1.8-7.7); Neutrophils % (Auto) 54 % (37-80); Nucleated Red Blood Cell # 0.00 Thou/mm3 (0.00-0.00); Nucleated Red Blood Cell % 0 /100 WBC (0); Platelet Count 79 Thou/mm3 (140-440); RDW Standard Deviation 45.8 fL (35.1-43.9); Red Blood Count 4.21 Miln/mm3 (4.50-5.90); White Blood Count 4.0 Thou/mm3 (3.8-10.6)
[2025-08-03 11:40] LABS: Slide Review Platelets confirmed
== END | disposition home or self-care (01) ==
LOC: COPL 10:08
PROVIDERS: PCP Internal Medicine; Referring Provider Specialist; Visit Provider Specialist
DX: D69.6 Thrombocytopenia, unspecified (principal)
CPT/HCPCS: 36415; 85025